=== PATIENT | female | born 1985 | race Caucasian/White ===

== ENCOUNTER 2021-04-04 12:01 | Emergency (ER) | payer OTHER, SELFPAY ==
[2021-04-04 12:07] VITALS: BP 131/85; RESP 18; TEMP 36.6; O2SAT 98; BMI 25.2
--- NOTE | 2021-04-04 12:19 | ED.GENADULT ---
HPI - General Adult General Chief complaint: Upper Respiratory Symptoms Stated complaint: Cough/Sore throat/fever Time Seen by Provider: 04/04/21 12:19 Source: patient Limitations: no limitations History of Present Illness HPI narrative: Patient presents with a 2 day history of sore throat headache cough fever. Positive sick contacts patient is not currently vaccinated for COVID-19 has not had COVID-19 in the past. Patient works as a high school coach. No nausea vomiting at this time no recent travel history. Symptoms mild to moderate pain increases with swallowing in her cough is currently nonproductive. Patient denies tobacco history diabetes or asthma. No other complaints at this time. Related Data Allergies Allergy/AdvReac Type Severity Reaction Status Date / Time No Known Allergies Allergy Unknown Unverified 12/01/19 17:04 Review of Systems Constitutional: Constitutional: Reports body ache(s), Reports chills, Reports fatigue, Reports fever(s) and Reports headache(s) ENT: Reports headache(s), Reports nasal congestion and Reports sore throat Cardiovascular: Cardiovascular: Denies chest pain and Denies dyspnea Respiratory: Respiratory: Reports cough and Denies dyspnea Gastrointestinal: Gastrointestinal: Denies diarrhea, Denies nausea and Denies vomiting Musculoskeletal: Musculoskeletal: Denies back pain and Denies muscle cramps Neurologic: Reports headache(s) Endocrine: Endocrine: Reports fatigue PMFSH Past Medical History Attestation statement: The following information was validated with the patient. Social History Social History Advance Directives: No Advance Directives Information Provided: Yes Patient : No Physical Exam Vital Signs: Vital Signs: Last Vital Signs Temp 98 F 04/04/21 12:07 Resp 18 04/04/21 12:07 BP 131/85 04/04/21 12:07 Pulse Ox 98 04/04/21 12:07 BMI result Body Mass Index 25.2 vital signs have been reviewed as normal and appeared to be correct. Blood pressure normal. Heart rate normal. Respiration rate normal. Temperature normal. Oxygen saturation normal. Appearance: Alert. Oriented X3. No acute distress. Head: Normal external exam. Normocephalic. Atraumatic. Eyes: PERRLA. EOMI. Conjunctiva and sclera normal. Eyelids normal. ENT: Pharynx normal. Uvula midline. Moist mucous membranes. No evidence of peritonsillar abscess Neck: Soft full range of motion, no JVD CVS: Heart regular rate and rhythm no murmurs and rubs Respiratory: Breath sounds are clear to auscultation bilaterally. No accessory muscle use noted. Back: Full range of motion noted. Skin: Skin warm and dry. Normal skin color. no ecchymosis no rashes noted Extremities: No lower extremity edema. Extremities exhibit normal range of motion. Extremities nontender. Neuro: Oriented X 3. No motor deficit. No sensory deficit. Reflexes normal. Course Course Course Narrative: Acute pharyngitis COVID-19 Viral URI Bronchitis 12:22 p.m. COVID-19 swab obtained throat culture obtained room air O2 sats 98% vital signs are stable 1:01 p.m. a positive COVID-19 Medical Decision Making Lab Data Labs: Lab Results 04/04/21 04/04/21 Range/Units 12:13 12:13 COVID-19 (KYRIE) Positive A (Negative) COVID-19 Clin Com See Note S. pyogenes GrpA ZAIRE Negative (Negative) Discharge Plan Discharge Clinical Impression: COVID-19 Patient Disposition: Home, Self-Care Instructions: COVID-19 (Coronavirus Disease 2019) (ED) Additional Instructions: You have tested positive for COVID-19 self quarantine for 5 days continue wearing masks for 10 days Tylenol Motrin increase fluids rest Once you have recovered it is important to get vaccinated for COVID-19 Stand Alone Forms: Work/School Release
[2021-04-04 12:37] LABS: IDNOW Serial# 9DD0AD1C; Strep A Nucleic Acid Negative (Negative)
[2021-04-04 12:41] LABS: COVID-19 Test Positive (Negative)
== END 2021-04-04 13:12 | disposition home or self-care (01) ==
PROVIDERS: Emergency Provider Emergency Medicine Emergency Medical Services; PCP Internal Medicine
DX: U07.1 COVID-19 (principal)
CPT/HCPCS: 87635; 87651; 99283

== ENCOUNTER 2021-12-20 19:46 | Emergency (ER) | payer OTHER, SELFPAY ==
[2021-12-20 19:51] VITALS: BP 125/80; PULSE 112; RESP 17; TEMP 37.4; O2SAT 98; BMI 25.6
[2021-12-20 22:18] LABS: MANUAL DIFF FLAG NO
[2021-12-20 22:19] LABS: Basophils Absolute Auto 0.1 X10*3/uL (0.0-0.2); Basophils Percent Auto 0.3 % (0-2); Eosinophils Percent Auto 0.2 % (0-4); Hematocrit 40.3 % (37.0-47.0); Hemoglobin 13.3 g/dl (12.0-16.0); Imm Gran Abs Auto 0.05 X10*3/uL (0.00-0.03); Imm Gran Pct Auto 0.3 % (0.0-0.4); Lymphocytes Absolute Auto 1.8 X10*3/uL (1.2-4.9); Lymphocytes Percent Auto 12.5 % (20-40); Mean Corpuscular Hemoglobin 26.4 pg (27.0-33.0); Mean Corpuscular Volume 80.1 fL (80.0-98.0); Mean Platelet Volume 9.7 fL (9.4-12.3); Monocytes Percent Auto 6.6 % (2-11); Neutrophils Absolute Auto 11.6 x10*3/uL (2.0-8.3); Neutrophils Percent Auto 80.1 % (45-73); Platelet Count 263 X10*3/uL (160-400); Red Blood Count 5.03 X10*6/uL (4.20-5.50); Red Cell Distribution Width 14.8 % (11.0-16.0); White Blood Count 14.5 X10*3/uL (4.8-10.8)
[2021-12-20 22:37] LABS: Alanine Aminotransferase 49 U/L (0-31); Albumin Level 4.4 g/dL (3.5-5.0); Alkaline Phosphatase 100 U/L (39-117); Anion Gap 15 (12-20); Aspartate Amino Transferase 28 U/L (5-31); Bilirubin Total 1.5 mg/dL (0.0-1.0); Blood Urea Nitrogen 11 mg/dL (9-16); Carbon Dioxide 24 mmol/L (22-29); Chloride 105 mmol/L (96-108); Estimated Glomerular Filt Rate > 60; Glucose Random 90 mg/dL (60-115); Potassium 3.6 mmol/L (3.3-5.1); Sodium 140 mmol/L (135-145); Total Protein 8.1 g/dL (6.5-8.0)
[2021-12-20 22:44] LABS: COVID-19 Test Negative (Negative)
== END 2021-12-21 00:34 | disposition left against medical advice (07) ==
PROVIDERS: Emergency Provider Emergency Medicine
DX: R50.9 Fever, unspecified (principal); M79.10 Myalgia, unspecified site; Z20.822 Contact with and (suspected) exposure to COVID-19; Z79.899 Other long term (current) drug therapy
CPT/HCPCS: 80053; 85025; 87635; 99281; 99283